=== PATIENT | male | born 1960 | race Two or more races ===

== ENCOUNTER 2019-11-28 13:40 | Outpatient (CLI) | payer BC, SELFPAY ==
--- NOTE | ~2019-11-28 | XR_ITS ---
EXAMINATION: XR elbow LT 2V DATE: 11/28/2019 14:04 INDICATION: Left elbow injury. TECHNIQUE: 2 views of left elbow were obtained. COMPARISON: None. FINDINGS: There is an impacted fracture of lateral radial head with 1 mm step-off at the articular allen rface. Joint spaces are normal. There is an elbow joint effusion. IMPRESSION: 1. Radial head fracture. 2. Elbow joint effusion. Reviewed, dictated and finalized at location B.
--- NOTE | ~2019-11-28 | XR_ITS ---
EXAMINATION: XR elbow RT 2V DATE: 11/28/2019 14:04 INDICATION: Right elbow injury. TECHNIQUE: 2 views of right elbow were obtained. COMPARISON: None. FINDINGS: There is a nondisplaced fracture of lateral radial head. Joint spaces are normal. There is an elbow joint effusion. IMPRESSION: 1. Radial head fracture. 2. Elbow joint effusion. Reviewed, dictated and finalized at location B.
== END 2019-11-28 13:41 | disposition home or self-care (01) ==
PROVIDERS: PCP Family Medicine; Visit Provider Nurse Practitioner Family
DX: M25.422 Effusion, left elbow (principal); M25.421 Effusion, right elbow; S52.122A Displaced fracture of head of left radius, initial encounter for closed fracture; S52.121A Displaced fracture of head of right radius, initial encounter for closed fracture; X58.XXXA Exposure to other specified factors, initial encounter
CPT/HCPCS: 73070

== ENCOUNTER 2020-06-26 11:39 | Outpatient (CLI) | payer OTHER, SELFPAY | END 2020-06-26 11:40 | disposition home or self-care (01) | LOC: ANHCOVIDVC 11:39 | PROVIDERS: PCP Family Medicine | DX: Z23 Encounter for immunization (principal) | CPT/HCPCS: 0001A; 91300 ==

== ENCOUNTER 2020-07-17 17:18 | Outpatient (CLI) | payer OTHER, SELFPAY | END 2020-07-17 17:19 | disposition home or self-care (01) | LOC: ANHCOVIDVC 17:18 | PROVIDERS: PCP Family Medicine | DX: Z23 Encounter for immunization (principal) | CPT/HCPCS: 0002A; 91300 ==

== ENCOUNTER 2021-07-30 00:33 | Day surgery (SDC) | payer BC, SELFPAY ==
[2021-07-19 15:37] VITALS: BMI 27.3
[2021-07-30 06:42] VITALS: BP 122/81; PULSE 57; RESP 16; TEMP 36.3; O2SAT 100; BMI 27.8
[2021-07-30] MEDS: LACTATED RINGERS 1,000 ML 150 ML IV CONT (06:50)
--- NOTE | 2021-07-30 07:04 | PM.HPGS ---
History of Present Illness History of Present Illness Consent: Risks, benefits, and alternatives have been discussed and questions answered. Patient agrees to proceed with procedure. Chief complaint: neoplasm screening Narrative: Cristobal Zapien is a 61 year old male referred for colon cancer screening. He has had no problems since his last colonoscopy 11 years ago. A maternal grandparent had colon cancer. Review of Systems Review of Systems: All systems reviewed & are unremarkable except as noted in HPI and below PMFSH Past Medical History Medical History BMI 27.0-27.9,adult Hepatitis liver disease Hypothyroidism Renal cyst Screening PSA (prostate specific antigen) Screening, lipid Surgical History Surgical History H/O knee surgery meniscus repair 2007, unknown DrBony Family History Family History Other Diabetes mellitus Family history of coronary artery disease Hypertension Social History Social History Smoking status: Never smoker Second hand tobacco smoke exposure: Yes Alcohol intake: current Alcohol use details: occasional Substance use: never Substance use type: does not use Living arrangements: with family Gender identity (if verbalized by the patient): Male Spiritual care concerns: No Meds Home Medications and Allergies Home Medications Medication Instructions Recorded Confirmed Type aspirin 81 mg tablet,delayed 81 mg PO DAILY 12/04/19 07/19/21 History release levothyroxine 50 mcg tablet 50 mcg PO DAILY #30 tablet 07/10/21 07/19/21 Rx Allergies Allergy/AdvReac Type Severity Reaction Status Date / Time No Known Allergies Allergy Verified 07/19/21 15:49 Vital Signs Vital Signs - 24 hr 07/30/21 06:42 Temperature 36.3 C L Pulse Rate 57 L Respiratory Rate 16 Blood Pressure 122/81 Pulse Oximetry 100 Exam Const: General: alert Orientation/consciousness: patient oriented x3 Resp: Auscultation: clear to auscultation bilaterally Cardio: Rhythm: regular rhythm GI: GI Palp: Yes Soft to palpation and No Tenderness to palpation present (GI) Neuro: General: patient oriented x3 Assessment and Plan Assessment and plan (1) Colon cancer screening: Code(s): Z12.11 - Encounter for screening for malignant neoplasm of colon Status: Acute Assessment and Plan: Colonoscopy with possible biopsy or polypectomy or cautery or injection of substances.
--- NOTE | 2021-07-30 07:16 | WPDANESEPPF ---
Anes - Initial Pre Proc Eval Procedure: Operation Date: 07/30/21 08:00 Proposed Procedures p Screening Colonoscopy - Jairon Salomon MD Date/Time: 07/30/21 07:16 Surgeon: Jairon Salomon MD Pre Op Diagnosis: neoplasm screening Patient Data Age: 61 Gender: M Height: 1.83 m Weight: 93.3 kg Last Vital Signs Temp 36.3 C L 07/30/21 06:42 Pulse 57 L 07/30/21 06:42 Resp 16 07/30/21 06:42 BP 122/81 07/30/21 06:42 Pulse Ox 100 07/30/21 06:42 Allergies Allergy/AdvReac Type Severity Reaction Status Date / Time No Known Allergies Allergy Verified 07/19/21 15:49 Home Medications Medication Instructions Recorded Confirmed Type aspirin 81 mg tablet,delayed 81 mg PO DAILY 12/04/19 07/19/21 History release levothyroxine 50 mcg tablet 50 mcg PO DAILY #30 tablet 07/10/21 07/19/21 Rx Patient hx anesthesia problems: none Family hx anesthesia problems: none Results Review: All pre-operative results and documents have been reviewed as part of the pre-operative evaluation. [facility] Past Medical History Medical History BMI 27.0-27.9,adult Hepatitis liver disease Hypothyroidism Renal cyst Screening PSA (prostate specific antigen) Screening, lipid Surgical History Surgical History H/O knee surgery meniscus repair 2007, unknown DrBony Family History Family History Other Diabetes mellitus Family history of coronary artery disease Hypertension Social History Social History Smoking status: Never smoker Second hand tobacco smoke exposure: Yes Alcohol intake: current Alcohol use details: occasional Substance use: never Substance use type: does not use Living arrangements: with family Gender identity (if verbalized by the patient): Male Spiritual care concerns: No Anes - Eval Final PreProcedure Day of Procedure 07/30/21 07:16 Patient weight: overweight Heart: regular rate and rhythm Lungs: clear to auscultation Airway: Mallampati scale class II Neurological: alert and oriented Last oral intake: >/= 8 hours ASA classification: II Emergent: no Anesthetic plan: proceed Anesthesia type and monitoring: general GIVS and standard monitoring Results Review: All pre-operative results and documents have been reviewed as part of the pre-operative evaluation. Informed Consent: The patient's anesthetic plan and its attendant risks and benefits were discussed with the patient/family/POA. Questions were solicited and answers provided to the satisfaction of the patient/family/POA.
[2021-07-30] MEDS: SIMETHICONE ORAL SUSPENSION 20 MG/0.3 ML 30 ML BOTTLE 0.6 ML IRRIGATION (07:59)
[2021-07-30 08:12] VITALS: BP 120/71; PULSE 69; RESP 24; O2SAT 99
[2021-07-30 08:22] VITALS: BP 115/66; PULSE 53; RESP 19; O2SAT 99
[2021-07-30 08:32] VITALS: BP 118/75; PULSE 57; RESP 12; O2SAT 100
== END 2021-07-30 08:37 | disposition home or self-care (01) ==
PROVIDERS: PCP Family Medicine; Visit Provider Internal Medicine Gastroenterology
PROC: 0DJD8ZZ Inspection of Lower Intestinal Tract, Via Natural or Artificial Opening Endoscopic (ICD-10-PCS; CPT 45378; principal; 2021-07-30 08:00)
DX: Z12.11 Encounter for screening for malignant neoplasm of colon (principal); E03.9 Hypothyroidism, unspecified; Z79.82 Long term (current) use of aspirin
CPT/HCPCS: 45378; J2704; J7120

== ENCOUNTER → 2021-10-01 15:12 | Outpatient (CLI) | payer BC, SELFPAY ==
--- NOTE | ~2021-10-01 | US_ITS ---
EXAMINATION: US venous doppler [facility] DATE: 10/01/2021 15:34 INDICATION: Left lower limb swelling TECHNIQUE: Grayscale ultrasound images without and with compression and Doppler ultrasound images of the left lower extremity veins were obtained. COMPARISON: None. FINDINGS: The visualized portions of left common femoral vein, profunda (deep) femoral vein, femoral vein, popl iteal vein, peroneal veins, posterior tibial veins, gastrocnemius vein and greater saphenous vein out flow are patent. IMPRESSION: 1. No deep venous thrombosis in the left lower limb. Reviewed, dictated and finalized at location A.
== END ==
PROVIDERS: PCP Family Medicine; Visit Provider Family Medicine
DX: R60.0 Localized edema (principal)
CPT/HCPCS: 93971

== ENCOUNTER 2023-03-10 07:58 | Outpatient (CLI) | payer BC, SELFPAY ==
--- NOTE | ~2023-03-10 | XR_ITS ---
EXAMINATION: XR hand RT min 3V INDICATION: Right hand pain TECHNIQUE: Three views of the right hand are obtained. COMPARISON: None available FINDINGS: Bone alignment is normal. There is no fracture. There is moderate osteoarthritis at the sec ond distal interphalangeal joint and mild osteoarthritis of multiple interphalangeal joints. The soft tissues are unremarkable. IMPRESSION: 1. Polyarticular osteoarthritis. Reviewed, dictated and finalized at location F. TO DOOR FUNDRAISING COLLECTOR
--- NOTE | ~2023-03-10 | XR_ITS ---
EXAMINATION: XR hand LT min 3V INDICATION: Left hand pain TECHNIQUE: Three views of the left hand are obtained. COMPARISON: None available FINDINGS: Bone alignment is normal. There is no fracture. There is mild osteoarthritis of multiple in terphalangeal joints, including the first interphalangeal joint. No acute soft tissue abnormality is identified. IMPRESSION: 1. Polyarticular osteoarthritis. Reviewed, dictated and finalized at location F. NG MACHINE FEEDER
== END 2023-03-10 07:59 | disposition home or self-care (01) ==
PROVIDERS: PCP Family Medicine; Visit Provider Physician Assistant Medical
DX: M79.641 Pain in right hand (principal); M79.642 Pain in left hand
CPT/HCPCS: 73130

== ENCOUNTER 2025-03-19 13:46 | Outpatient (CLI) | payer OTHER, SELFPAY ==
--- NOTE | ~2025-03-19 | XR_ITS ---
XR lumbar spine 2-3V Indication: Pain in right hip x 2 months, no inj, no surg Comparison: None Findings: The vertebral heights are intact. No fracture or subluxation. Severe loss of disc height at L5-S1. Soft tissues unremarkable Impression: No acute abnormality. Reviewed, dictated and finalized at location P. ICAL ACCOUNT MANAGER Impression: No acute abnormality.
--- NOTE | ~2025-03-19 | XR_ITS ---
EXAMINATION: XR hip RT min 2V, 03/19/2025 14:07 SINGEING TORCH OPERATOR HISTORY: Pain in right hip x 2 months COMPARISON: No comparisons available. Findings: No acute fracture or malalignment. No significant degenerative changes. Soft tissues unremarkable. Impression: No acute fracture or malalignment. Reviewed, dictated and finalized at location P. EING TORCH OPERATOR Impression: No acute fracture or malalignment.
== END 2025-03-19 13:47 | disposition home or self-care (01) ==
LOC: GOSHIMG 13:47
PROVIDERS: PCP Nurse Practitioner Adult Health; Visit Provider Nurse Practitioner Adult Health
DX: R29.890 Loss of height (principal); M25.551 Pain in right hip; M54.16 Radiculopathy, lumbar region
CPT/HCPCS: 72100; 73502